=== PATIENT | female | born 1930 | race Caucasian/White ===

== ENCOUNTER 2019-02-03 06:14 | Inpatient (IN) | payer MEDICARE, MEDICAID ==
[~2019-02-03] VITALS: Ht 157.5 cm; Wt 85.7 kg
[~2019-02-03 06:14] MED LIST: AMLO10TA80 PO; CLOP75TA4 PO; FAMO40TA7 PO; FURO-152 PO; LISI-604 PO
[2019-02-03 07:29] LABS: CHLORIDE 110 mEq/L (98-107)
[2019-02-03 07:30] LABS: BASOPHILS % 0.4 % (0.0-2.0); HEMATOCRIT. 37.9 % (36.0-48.0); HEMOGLOBIN. 12.3 g/dL (12.0-16.0); LYMPHOCYTES % 16.7 % (20.0-50.0); MEAN CORPUSCULAR HEMOGLOBIN 28.2 pg (28.0-32.0); MEAN CORPUSCULAR VOLUME 86.7 fL (81.0-99.0); MONOCYTES % 9.2 % (2.0-8.0); NEUTROPHILS % 73.7 % (40.0-76.0); PLATELET 222 x1000/uL (130-400); RED BLOOD CELL COUNT 4.37 mill/uL (4.2-5.4); RED CELL DISTRIBUTION WIDTH 15.3 % (11.6-14.6)
[2019-02-03] MEDS ORDERED: LOSARTAN POTASSIUM 100 MG TABLET PO SCH (09:15)
[2019-02-03] MEDS ORDERED: FUROSEMIDE 40MG/4ML VIAL IVP SCH (09:15)
[2019-02-03] MEDS ORDERED: CLONIDINE 0.1MG TABLET PO PRN (09:15)
[2019-02-03] MEDS ORDERED: ONDANSETRON HCL 4MG/2ML INJ IV PRN (09:15)
[2019-02-03 14:16] VITALS: BP 201/67
[2019-02-03] MEDS ORDERED: SIMV20TA6 PO (14:41)
[2019-02-03] MEDS ORDERED: AMIT25TA9 PO (14:43)
[2019-02-03] MEDS ORDERED: RANI300C8 PO (14:43)
[2019-02-03] MEDS ORDERED: HYDRALAZINE 20MG/ML VIAL IV NR (14:45)
[2019-02-03] MEDS ORDERED: LISINOPRIL 20MG TABLET PO SCH (14:45)
[2019-02-03] MEDS ORDERED: AMLODIPINE 10MG TABLET PO SCH (14:45)
[2019-02-03] MEDS: ACETAMINOPHEN 325MG TABLET PO PRN (15:31)
[2019-02-03] MEDS: LOSARTAN POTASSIUM 50 MG TABLET PO SCH ×2 (15:32→22:48)
[2019-02-03] MEDS: AMLODIPINE 10MG TABLET PO SCH (15:32)
[2019-02-03] MEDS: CLONIDINE 0.1MG TABLET PO SCH ×2 (15:32→22:48)
[2019-02-03 15:52] VITALS: BP 201/67
[2019-02-03] MEDS ORDERED: INFLUENZA VIRUS VACCINE(AFLURIA) 0.5ML SYR IM ONE (16:30)
[2019-02-03 20:00] VITALS: BP 142/43
[2019-02-03] MEDS ORDERED: MEDICATION NOT ON FORMULARY EA (Simvastatin 20 MG) PO SCH (21:00)
[2019-02-03] MEDS: AMITRIPTYLINE 25MG TABLET PO SCH (22:47)
[2019-02-03] MEDS: ATORVASTATIN CALCIUM 10MG TABLET PO SCH (22:49)
[2019-02-03] MEDS: ENOXAPARIN 30MG/0.3ML SYR SUBCUT SCH (22:50)
[2019-02-04] VITALS: BP 162/67
[2019-02-04] MEDS: CLONIDINE 0.1MG TABLET PO SCH ×3 (06:55→22:00)
[2019-02-04 07:36] LABS: BASOPHILS % 0.4 % (0.0-2.0); EOSINOPHILS % 0.1 % (0.0-5.0); HEMATOCRIT. 35.9 % (36.0-48.0); HEMOGLOBIN. 11.6 g/dL (12.0-16.0); LYMPHOCYTES % 18.6 % (20.0-50.0); MEAN CORPUSCULAR VOLUME 86.5 fL (81.0-99.0); MEAN PLATELET VOLUME 7.6 fl (7.4-10.4); MONOCYTES % 8.7 % (2.0-8.0); NEUTROPHILS % 72.2 % (40.0-76.0); PLATELET 209 x1000/uL (130-400); RED BLOOD CELL COUNT 4.14 mill/uL (4.2-5.4); RED CELL DISTRIBUTION WIDTH 15.6 % (11.6-14.6)
[2019-02-04 07:52] LABS: CHLORIDE 109 mEq/L (98-107)
[2019-02-04 08:00] VITALS: BP 169/66
[2019-02-04] MEDS ORDERED: MEDICATION NOT ON FORMULARY EA (Ranitidine Hcl 300 MG) PO SCH (09:00)
[2019-02-04] MEDS ORDERED: FUROSEMIDE 20MG TABLET PO SCH (09:00)
[2019-02-04] MEDS ORDERED: HYDRALAZINE HCL 50MG TABLET PO SCH (09:00)
[2019-02-04] MEDS: ENOXAPARIN 30MG/0.3ML SYR SUBCUT SCH ×2 (09:00→20:32)
[2019-02-04] MEDS ORDERED: CLOPIDOGREL 75MG TABLET PO SCH (09:00)
[2019-02-04] MEDS: FUROSEMIDE 40MG/4ML VIAL IVP SCH (09:43)
[2019-02-04] MEDS: CLOPIDOGREL 75MG TABLET PO SCH (09:45)
[2019-02-04] MEDS: AMLODIPINE 10MG TABLET PO SCH (09:46)
[2019-02-04] MEDS: ASPIRIN 81MG TABLET PO SCH (09:46)
[2019-02-04] MEDS: LOSARTAN POTASSIUM 50 MG TABLET PO SCH ×2 (09:47→20:30)
[2019-02-04] MEDS: FAMOTIDINE 20MG TABLET PO SCH (09:47)
[2019-02-04 12:00] VITALS: BP 149/65
[2019-02-04] MEDS: HYDRALAZINE HCL 50MG TABLET PO SCH ×2 (14:07→22:00)
[2019-02-04] MEDS: LEVOFLOXACIN 250MG PREMIX 50 ML IV SCH (14:10)
[2019-02-04 16:00] VITALS: BP 124/62
[2019-02-04 17:24] LABS: CLARITY URINE CLEAR (CLEAR); COLOR URINE RED (YELLOW); KETONES URINE NEGATIVE (NEGATIVE); LEUKOCYTE ESTERASE URINE 2+ (NEGATIVE); NITRITE URINE NEGATIVE (NEGATIVE); OCCULT BLOOD URINE 3+ (NEGATIVE); PH URINE 7.5 (4.5-8.0); PROTEIN URINE NEGATIVE (NEGATIVE); SPECIFIC GRAVITY URINE 1.006 (1.005-1.030); UROBILINOGEN URINE 0.2 E.U./dL (0.2-1.0)
[2019-02-04] MEDS: ACETAMINOPHEN 325MG TABLET PO PRN (18:10)
[2019-02-04] MEDS: AMITRIPTYLINE 25MG TABLET PO SCH (20:30)
[2019-02-04] MEDS: ATORVASTATIN CALCIUM 10MG TABLET PO SCH (20:31)
[2019-02-05] VITALS: BP 150/45
[2019-02-05 04:00] VITALS: BP 132/50
[2019-02-05] MEDS: CLONIDINE 0.1MG TABLET PO SCH ×3 (05:20→22:00)
[2019-02-05] MEDS: HYDRALAZINE HCL 50MG TABLET PO SCH ×3 (05:20→20:29)
[2019-02-05 06:38] LABS: BASOPHILS % 0.3 % (0.0-2.0); HEMATOCRIT. 37.8 % (36.0-48.0); HEMOGLOBIN. 12.3 g/dL (12.0-16.0); LYMPHOCYTES % 14.1 % (20.0-50.0); MEAN CORPUSCULAR HEMOGLOBIN 28.3 pg (28.0-32.0); MEAN CORPUSCULAR VOLUME 86.8 fL (81.0-99.0); MEAN PLATELET VOLUME 7.4 fl (7.4-10.4); MONOCYTES % 7.9 % (2.0-8.0); NEUTROPHILS % 77.7 % (40.0-76.0); PLATELET 215 x1000/uL (130-400); RED BLOOD CELL COUNT 4.36 mill/uL (4.2-5.4); RED CELL DISTRIBUTION WIDTH 15.2 % (11.6-14.6)
[2019-02-05 07:51] LABS: CHLORIDE 109 mEq/L (98-107)
[2019-02-05 08:00] VITALS: BP 133/69
[2019-02-05] MEDS: FUROSEMIDE 40MG/4ML VIAL IVP SCH (09:48)
[2019-02-05] MEDS: FAMOTIDINE 20MG TABLET PO SCH (09:48)
[2019-02-05] MEDS: AMLODIPINE 10MG TABLET PO SCH (09:48)
[2019-02-05] MEDS: CLOPIDOGREL 75MG TABLET PO SCH (09:49)
[2019-02-05] MEDS: ENOXAPARIN 30MG/0.3ML SYR SUBCUT SCH ×2 (09:49→20:30)
[2019-02-05] MEDS: ASPIRIN 81MG TABLET PO SCH (09:49)
[2019-02-05] MEDS: LOSARTAN POTASSIUM 50 MG TABLET PO SCH ×2 (09:49→20:18)
[2019-02-05] MEDS: ACETAMINOPHEN 325MG TABLET PO PRN (10:40)
[2019-02-05 12:00] VITALS: BP_SYST 128; BP_SYST 151; BP_DIAS 65; BP_DIAS 66
[2019-02-05] MEDS: LEVOFLOXACIN 250MG PREMIX 50 ML IV SCH (13:42)
[2019-02-05 16:00] VITALS: BP 128/67
[2019-02-05 20:00] VITALS: BP 114/51
[2019-02-05] MEDS: ATORVASTATIN CALCIUM 10MG TABLET PO SCH (20:29)
[2019-02-05] MEDS: AMITRIPTYLINE 25MG TABLET PO SCH (20:29)
[2019-02-06] VITALS: BP 139/88
[2019-02-06 04:00] VITALS: BP 160/70
[2019-02-06] MEDS: CLONIDINE 0.1MG TABLET PO SCH ×2 (05:57→14:00)
[2019-02-06] MEDS: HYDRALAZINE HCL 50MG TABLET PO SCH ×2 (05:57→13:05)
[2019-02-06 06:47] LABS: CHLORIDE 108 mEq/L (98-107)
[2019-02-06 07:09] LABS: BASOPHILS % 0.3 % (0.0-2.0); HEMATOCRIT. 35.4 % (36.0-48.0); HEMOGLOBIN. 11.7 g/dL (12.0-16.0); LYMPHOCYTES % 14.2 % (20.0-50.0); MEAN CORPUSCULAR HEMOGLOBIN 28.9 pg (28.0-32.0); MEAN PLATELET VOLUME 7.4 fl (7.4-10.4); MONOCYTES % 9.4 % (2.0-8.0); NEUTROPHILS % 76.1 % (40.0-76.0); PLATELET 195 x1000/uL (130-400); RED BLOOD CELL COUNT 4.07 mill/uL (4.2-5.4); RED CELL DISTRIBUTION WIDTH 15.8 % (11.6-14.6)
[2019-02-06 08:00] VITALS: BP 110/37
[2019-02-06] MEDS: CLOPIDOGREL 75MG TABLET PO SCH (08:51)
[2019-02-06] MEDS: ASPIRIN 81MG TABLET PO SCH (08:51)
[2019-02-06] MEDS: AMLODIPINE 10MG TABLET PO SCH (08:52)
[2019-02-06] MEDS: LOSARTAN POTASSIUM 50 MG TABLET PO SCH (08:52)
[2019-02-06] MEDS: FAMOTIDINE 20MG TABLET PO SCH (08:52)
[2019-02-06] MEDS: ENOXAPARIN 30MG/0.3ML SYR SUBCUT SCH (08:53)
[2019-02-06] MEDS ORDERED: FUROSEMIDE 40MG TABLET PO SCH (09:00)
[2019-02-06] MEDS ORDERED: LEVOFLOXACIN 250MG TABLET PO SCH (11:00)
[2019-02-06 12:00] VITALS: BP 130/59
[2019-02-06 13:30] VITALS: BP 130/59
[2019-02-07] MEDS ORDERED: ENOXAPARIN 40MG/0.4ML SYR SUBCUT SCH (09:00)
== END 2019-02-06 15:25 | disposition home or self-care (01) | DRG 871 ==
LOC: ER 06:33 → 8WST 09:05 → EDBEDREQTM 09:09 → ENRESERV 13:10
PROVIDERS: ADMIT Internal Medicine Nephrology; ATTEND Internal Medicine Nephrology
DX: A41.9 Sepsis, unspecified organism (principal); I50.43 Acute on chronic combined systolic (congestive) and diastolic (congestive) heart failure; I69.354 Hemiplegia and hemiparesis following cerebral infarction affecting left non-dominant side; N39.0 Urinary tract infection, site not specified; I31.3 Pericardial effusion (noninflammatory); I11.0 Hypertensive heart disease with heart failure; E66.9 Obesity, unspecified; E78.5 Hyperlipidemia, unspecified; E87.8 Other disorders of electrolyte and fluid balance, not elsewhere classified; I16.0 Hypertensive urgency; I25.2 Old myocardial infarction; I27.20 Pulmonary hypertension, unspecified; Z90.710 Acquired absence of both cervix and uterus; E78.00 Pure hypercholesterolemia, unspecified; Z79.02 Long term (current) use of antithrombotics/antiplatelets; Z79.82 Long term (current) use of aspirin; Z79.899 Other long term (current) drug therapy; Z71.3 Dietary counseling and surveillance
CPT/HCPCS: 36415; 71045; 73610; 80048; 80061; 81003; 83880; 84443; 84484; 87077; 87186; 90686; 93005; 93306; 93970; 97110; 97116; 97161; 97535; 99285; J0360; J1650; J1940; J1956